=== PATIENT | female | born 2000 | race Caucasian/White ===

== ENCOUNTER 2021-10-29 13:12 | Emergency (ER) | payer OTHER ==
[2021-10-29 13:52] LABS: BILIRUBIN,URINE NEGATIVE (NEGATIVE); GLUCOSE, URINE (UA) NEGATIVE (NEGATIVE); KETONES,URINE (UA) NEGATIVE (NEGATIVE); LEUKOCYTE ESTERASE, URINE LARGE (NEGATIVE); NITRITE,URINE POSITIVE (NEGATIVE); OCCULT BLOOD,URINE MODERATE (NEGATIVE); PROTEIN,URINE NEGATIVE (NEGATIVE); UROBILINOGEN,URINE 0.2 (NORMAL) E.U./dL (NORMAL)
[2021-10-29 14:01] LABS: CLARITY,URINE CLEAR (CLEAR)
[2021-10-29 14:02] LABS: HCG UR QUAL NEGATIVE
[2021-10-29 14:06] LABS: BACTERIA,URINE Rare /HPF (None Seen); SQUAMOUS EPITHELIAL CELL,UR MOD Squamous (<= Few)
--- NOTE | 2021-10-29 14:53 | ED Physician Documentation ---
PD HPI ABD PAIN - Stated complaint Stated Complaint: FEMALE - Chief complaint Chief Complaint: Abd Pain - History obtained from History obtained from: Patient - History of Present Illness Timing - onset: How many days ago (4) Timing - duration: Days Timing - details: Gradual onset, Still present Quality: Cramping, Aching, Pain Location: RLQ, Suprapubic Radiation: Right flank Associated symptoms: Nausea, Dysuria, Hematuria. No: Vomiting, Chest pain, Loss of appetite, Vaginal dc Similar symptoms before: Diagnosis (UTIs several years ago) Review of Systems Constitutional: reports: Chills, Myalgias. denies: Fever Nose: denies: Rhinorrhea / runny nose, Congestion Respiratory: denies: Cough GI: reports: Abdominal Pain, Nausea. denies: Vomiting, Diarrhea : reports: Dysuria, Frequency. denies: Hematuria Skin: denies: Rash, Lesions Neurologic: denies: Focal weakness, Numbness, Near syncope PD PAST MEDICAL HISTORY - Past Medical History Cardiovascular: None Respiratory: None Endocrine/Autoimmune: None [employer]: None - Present Medications Home Medications: Ambulatory Orders Medication Instructions Recorded Confirmed Famotidine [Pepcid] 20 mg PO DAILY 30 Days #30 tablet 10/29/21 Ondansetron Odt [Zofran] 4 mg TL Q6H PRN #10 tablet 10/29/21 cephALEXin [Keflex] 500 mg PO TID 5 Days #15 cap 10/29/21 - Allergies Allergies/Adverse Reactions: Allergies Allergy/AdvReac Type Severity Reaction Status Date / Time bacitracin AdvReac Edema Verified 10/29/21 13:33 PD ED PE NORMAL - Vitals Vital signs reviewed: Yes - General General: Alert and oriented X 3, No acute distress, Well developed/nourished - Cardiac Cardiac: RRR, No murmur - Respiratory Respiratory: Clear bilaterally - Abdomen Abdomen: Soft, Non tender - Female Female : Deferred - Back Back: No CVA TTP, No spinal TTP - Derm Derm: Normal color, Warm and dry Results - Vitals Vitals: Oxygen O2 Source Room air - Labs Labs: Laboratory Tests 10/29/21 13:41 Urine Color YELLOW Urine Clarity CLEAR Urine pH 7.0 Ur Specific [place] <=1.005 Urine Protein NEGATIVE Urine Glucose (UA) NEGATIVE Urine Ketones NEGATIVE Urine Occult Blood MODERATE H Urine Nitrite POSITIVE H Urine Bilirubin NEGATIVE Urine Urobilinogen 0.2 (NORMAL) Ur Leukocyte Esterase LARGE H Urine RBC 6-10 H Urine WBC 11-25 H Ur Squamous Epith Cells MOD Squamous H Urine Bacteria Rare Ur Microscopic Review INDICATED Urine Culture Comments NOT INDICATED Urine HCG, Qual NEGATIVE PD MEDICAL DECISION MAKING - ED course Complexity details: reviewed results (UA certainly positive for UTI. ), considered differential, d/w patient Departure - Departure Disposition: 01 Home, Self Care Clinical Impression: Dysuria, UTI (urinary tract infection) Condition: Stable Record reviewed to determine appropriate education?: Yes Instructions: ED UTI Cystitis Female Prescriptions: cephALEXin [Keflex] 500 mg PO TID 5 Days #15 cap Famotidine [Pepcid] 20 mg PO DAILY 30 Days #30 tablet Ondansetron Odt [Zofran] 4 mg TL Q6H PRN #10 tablet PRN Reason: Nausea / Vomiting Comments: Your symptoms and urine test are consistent with a urinary tract infection. We can treat this with cephalexin antibiotic 3 times daily as prescribed. For the pain you cannot use ibuprofen 4 and a milligrams 3 times a day as well. Try to take it with food. I prescribed some ondansetron to use every 6 hours if needed for nausea. Regarding your more longer term nausea, I might suggest trying an acid reducing medicine such as famotidine (Pepcid) daily for 3 to 4 weeks and see if your symptoms are overall better. For the urinary tract infection, recheck if not improving well over the next 2 to 3 days and resolved by 3 to 5 days. Return if worsening. I sent your prescriptions to [facility] in [place]. Discharge Date/Time: 10/29/21 15:16
[2021-10-29] MEDS ORDERED: ONDANSETRON ODT 4 MG TABLET TL STA (15:02)
[2021-10-29] MEDS ORDERED: IBUPROFEN 400 MG TABLET PO STA (15:02)
[2021-10-29] MEDS ORDERED: cephALEXin 250 MG CAPSULE PO STA (15:02)
[2021-10-29 15:13] VITALS: BP 112/76
== END 2021-10-29 15:16 | disposition home or self-care (01) ==
LOC: ED 13:12
DX: N39.0 Urinary tract infection, site not specified (principal); R30.0 Dysuria
CPT/HCPCS: 81001; 81025; 99283; 99284; A9270; Q0162; 81003; 87086